=== PATIENT | female | born 2000 | race Two or more races ===

== ENCOUNTER 2024-11-27 03:19 | Emergency (ER) | payer OTHER, SELFPAY ==
[2024-11-27 03:20] VITALS: BMI 36.1
[2024-11-27 04:01] VITALS: BP 135/86; PULSE 68; RESP 18; TEMP 37.1; O2SAT 98
--- NOTE | 2024-11-27 04:26 | XR_ITS ---
Examination: Abdomen sonogram, Limited Date and time of exam: November 27, 2024, 0436 hours INDICATIONS: Onset epigastric pain today Technique: Real-time garrison scale transabdominal sonographic images of the upper abdomen obtained. Findings: Gallbladder sludge, negative for cholelithiasis, normal gallbladder wall. Common bile duct 0.3 cm Pancreatic head 2.7 cm Liver 14.2 cm fatty infiltration smooth contour no focal liver lesions Normal hepatopetal portal venous flow Patent IVC IMPRESSION: Gallbladder sludge, negative for cholelithiasis, negative for cholecystitis Normal common bile duct
--- NOTE | 2024-11-27 04:29 | PD.EDRME ---
Rapid Medical Screening Exam RME Arrival date/time: 11/27/24 03:19 This is a case of 24-year-old female who came into the emergency room due to abdominal pain nausea vomiting for 2 days worsening of the symptoms this patient decided to start consult here in the emergency room Chief Complaint: Abdominal Pain Time Seen by Provider: 11/27/24 04:23 Vital signs: Vital Signs Temperature 98.8 F 11/27/24 04:01 Pulse Rate 68 11/27/24 04:01 Respiratory Rate 18 11/27/24 04:01 Blood Pressure 135/86 H 11/27/24 04:01 Pulse Oximetry (%) 98 11/27/24 04:01 Oxygen Delivery Method Room Air 11/27/24 04:01
[2024-11-27 05:14] LABS: Basophils # (Auto) 0.1 Thou/mm3 (0.0-0.2); Basophils % (Auto) 1 % (0-2.5); Eosinophils # (Auto) 1.0 Thou/mm3 (0.0-0.5); Eosinophils % (Auto) 6 % (0-10); Hematocrit 40.6 % (36.0-46.0); Hemoglobin 13.9 g/dL (12.0-16.0); Immature Granulocytes Auto 0.05 Thou/mm3 (0.00-0.00); Lymphocytes # (Auto) 2.1 Thou/mm3 (1.0-4.8); Lymphocytes % (Auto) 12 % (10-50); Mean Corpuscular HGB Conc 34.2 g/dl (31.0-37.0); Mean Corpuscular Hemoglobin 30.5 pg (25.0-35.0); Mean Corpuscular Volume 89 fL (80-100); Monocytes # (Auto) 0.9 Thou/mm3 (0.0-0.8); Monocytes % (Auto) 5 % (0-12); Neutrophils # (Auto) 13.6 Thou/mm3 (1.8-7.7); Neutrophils % (Auto) 77 % (37-80); Nucleated Red Blood Cell # 0.00 Thou/mm3 (0.00-0.00); Nucleated Red Blood Cell % 0 /100 WBC (0); Platelet Count 245 Thou/mm3 (140-440); RDW Standard Deviation 41.8 fL (36.4-46.3); Red Blood Count 4.55 Miln/mm3 (4.00-5.20); White Blood Count 17.7 Thou/mm3 (3.6-11.0)
[2024-11-27 05:32] LABS: Alanine Aminotransferase 13 U/L (10-49); Albumin, Serum 4.7 gm/dL (3.5-5.0); Albumin/Globulin Ratio 1.9 (1.2-2.2); Alkaline Phosphatase 76 U/L (46-116); Anion Gap 10 (7-16); Aspartate Amino Transferase 17 U/L (0-34); BUN/Creatinine Ratio 13 Ratio (12-20); Bilirubin,Total 0.4 mg/dL (0.3-1.2); Blood Urea Nitrogen 10 mg/dL (9-23); Calcium 9.2 mg/dL (8.3-10.6); Calcium (Corrected) 9.2 mg/dL (8.5-10.1); Carbon Dioxide 25.0 mMol/L (20.0-31.0); Chloride 107 mMol/L (98-107); Creatinine (Component) 0.8 mg/dL (0.6-1.3); Estimated Creatinine Clearance 105.1 mL/min (>60); Globulin 2.5 gm/dL (2.3-3.5); Glucose 113 mg/dL (74-106); Lipase 30 U/L (12-53); Osmolality,Calculated 283 (275-295); Potassium 4.0 mMol/L (3.4-5.1); Sodium 142 mMol/L (136-145); Total Protein 7.2 gm/dL (5.7-8.2); eGFR > 60 See Note
--- NOTE | 2024-11-27 06:16 | EDNOTE_ITS ---
<Statement entered by America Hodges MD - 11/27/24 18:08> As co-signing physician, I was present and available for consult and also examined patient. I concur with the plan and care as documented by the resident physician ED General RME/HPI General Chief complaint: Abdominal Pain Stated complaint: UPPER ABDOMINAL PAIN Time Seen by Provider: 11/27/24 04:23 Arrival date/time: 11/27/24 03:19 RME / HPI RME / HPI narrative: 11/27/24 03:19 Ju is a 24 y/o female with PMHx obesity who comes in for evaluation of worsening, sharp, epigastric abdominal pain, onset yesterday at 11 AM after eating breakfast (payne and eggs), radiates to the back, has never had this before, not relieved with [id number]-dkaxmyp pain medicines. She is unsure if her pain is worse with food or not, however she says it is worse with certain positions. patient reports she has never had the symptoms before and she was eating breakfast and she began to feel the symptoms of abdominal pain rated 0 out of 10 initially. She says no one around her including those who ate breakfast with her are having the symptoms. She denies any history of gallstones. She says she last drank last weekend and it was only 1 drink. She says she smokes THC. She takes ibuprofen about 1-2 times a week. Denies history of acid reflux. She currently takes control and her last period was about 2 weeks ago. She denies any chest pain, shortness of breath, nausea, vomiting, diarrhea, vaginal bleeding. She says her bowel movements are usually normal and she goes about 2 times a day, last BM 30 minutes ago. She does say that her mom's mother and grandmother had a history of gallstones. 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 She Lives in [facility], however is visiting family for her uncle's birthday. Related Data Previous Rx's ?Medication ?Instructions ?Recorded aluminum-mag hydroxide-simethicone 10 ml PO QID PRN in digestion 2 11/27/24 200 mg-200 mg-20 mg/5 mL oral susp weeks #3,000 mL (Maalox Advanced) Allergies Allergy/AdvReac Type Severity Reaction Status Date / Time No Known Allergies Allergy Verified 09/29/18 21:58 Review of Systems Review of Systems Narrative Review of Systems: 12 point ROS reviewed and is otherwise negative unless stated directly in the HPI ED Exam Narrative Physical exam: General: AAOx3, NAD, obese HEENT: Moist mucous membranes, conjunctiva clear, EOMI, PERRLA, Cardiovascular: S1, S2, radial pulses +2 bilat, RRR Pulmonary: CTAB bilat no cough, no wheezing GI: Slight tenderness in RUQ, more tenderness in epigastric region, no guarding, rigidity, rebound tenderness or distension, bowel sounds present Extremities: No presence of trace or pitting edema in lower extremities bilaterally, dorsalis pedis pulses +2 bilaterally Neuro: AAOx3, no focal motor or sensory deficits in the UE or LE bilat Psych: Good judgement, thought and behavior Course Quality Measures none Orders Category Date Time Status CT Screening NOW Care 11/27/24 07:35 Active Insert IV NOW Care 11/27/24 07:[address] abdomen pelvis w con Stat Exams 11/27/24 07:35 Completed US gall bladder Stat Exams 11/27/24 04:26 Completed CBC Stat Lab 11/27/24 05:00 Completed Comprehensive Metabolic Panel Stat Lab 11/27/24 05:00 Completed Drug Screen,Urine Stat Lab 11/27/24 08:18 Completed HCG Qualitative,Urine Stat Lab 11/27/24 08:18 Completed Lipase Stat Lab 11/27/24 05:00 Completed Urinalysis Stat Lab 11/27/24 08:18 Completed Acetaminophen Tab [Tylenol Tab] Med 11/27/24 06:48 Discontinued 650 mg PO X1 ONE Famotidine Inj [Pepcid Inj] Med 11/27/24 07:26 Discontinued 20 mg IVP X1 ONE Ketorolac Inj [Toradol Inj] Med 11/27/24 07:26 Discontinued 30 mg IVP X1 ONE Pantoprazole Inj [Protonix Inj] Med 11/27/24 07:26 Discontinued 40 mg IVP X1 ONE mg Hyd/Al Hyd/Joel Susp [Maalox Susp] Med 11/27/24 07:26 Discontinued 30 ml PO X1 ONE Vital Signs Vital signs: Vital Signs Temperature 98.8 F 11/27/24 04:01 Pulse Rate 68 11/27/24 04:01 Respiratory Rate 18 11/27/24 04:01 Blood Pressure 135/86 H 11/27/24 04:01 Pulse Oximetry (%) 98 11/27/24 04:01 Oxygen Delivery Method Room Air 11/27/24 04:01 Discharge Plan Plan Patient Disposition: HOME (Self Care) Prescriptions/Referrals Prescriptions/Med Rec: New alum-mag hydroxide-simeth [Maalox Advanced] 200-200-20 mg/5 mL suspension 10 ml PO QID PRN (Reason: indigestion) 14 Days Qty: 3000 0RF Rx Instructions: Take 10 mL by mouth up to four times a day as needed for indigestion Referrals: No Primary/Family,Physician [Primary Care Provider] - In 1 week Problem List Clinical Impression: Biliary colic, Gastritis Patient/Caregiver Discharge Instructions Additional Instructions: Discharge instructions Follow-up with your PCP within 1 week We have prescribed you Maalox, take as prescribed Take [id number] Pepcid as needed for pain There was possible cysts on your ovaries seen on imaging, follow-up with your PCP regards to getting an ovarian ultrasound Speak with your PCP in regards to your symptoms including possible gallstone. Try to notice when your symptoms occur with and without food and with which type of foods. Recommend limiting fatty and spicy foods. Return to ED if your symptoms worsen or return Print Language: Chinese Stand Alone Forms: [employer] Award Info., Patient Portal Info Letter MDM Narrative MDM hospital course (for use when minimal MDM required): 0734: Reviewed labs which shows leukocytosis at 17.7, hemoglobin 14, liver enzymes within normal limits, T. bili unremarkable, ALP unremarkable, lipase 30. Pending gallbladder ultrasound read. At this time patient's abdominal exam is positive for slight tenderness in right upper quadrant and RLQ. Will need to follow-up with gallbladder ultrasound for further evaluation. Will order CT abd/pelvis w contrast for appendicitis workup. GI cocktail with Pepcid, Maalox and Protonix. Toradol 30 mg IV x 1 1057: Pain has resolved with GI cocktail. CT abd/pelvis reveals normal appendix, however possible follicular cysts. This patient can follow-up with ultrasound of ovaries outpatient. At this time patient is medically clear for discharge as there is no appendicitis, however gallbladder ultrasound did show gallbladder sludge which can indicate possible biliary colic that has passed. Patient was counseled on to notice if patient's pain returns with certain foods such as fatty and fried foods. She will need to speak with her PCP in regards for further workup. Considering that her pain did not improve with GI cocktail, she may benefit from Pepcid outpatient and we will prescribe her Maalox as well. She could also have a component of gastritis which she can work out outpatient. Medication Administration(s) Medication Administration History Discontinued Medications Acetaminophen (Acetaminophen 325 Mg Tablet) 650 mg PO X1 ONE Stop: 11/27/24 06:49 Last Admin: 11/27/24 07:29 Dose: 650 mg Documented By: ROSSY Al Hydrox/Mg Hydrox/Simethicone (Mg Hyd/Al Hyd/Joel (Maalox Reg) Susp 30 Ml Udc) 30 ml PO X1 ONE Stop: 11/27/24 07:27 Last Admin: 11/27/24 07:36 Dose: 30 ml Documented By: ROSSY Famotidine (Famotidine Inj 10 Mg/Ml Vial 2 Ml) 20 mg IVP X1 ONE Stop: 11/27/24 07:27 Last Admin: 11/27/24 07:43 Dose: 20 mg Documented By: ROSSY Ketorolac Tromethamine (Ketorolac Inj 30 Mg/Ml Vial) 30 mg IVP X1 ONE Stop: 11/27/24 07:27 Last Admin: 11/27/24 07:44 Dose: 30 mg Documented By: ROSSY Pantoprazole Sodium (Pantoprazole Inj 40 Mg Vial) 40 mg IVP X1 ONE Stop: 11/27/24 07:27 Last Admin: 11/27/24 07:43 Dose: 40 mg Documented By: ROSSY Diagnosis Diagnoses ruled out and/or further discussions: Biliary colic, appendicitis, gastritis, PUD, pancreatitis
[2024-11-27 06:26] VITALS: BP 126/77; PULSE 61; RESP 19; TEMP 36.7; O2SAT 98
[2024-11-27] MEDS: ACETAMINOPHEN 325 MG TABLET 650 MG PO (07:29)
--- NOTE | 2024-11-27 07:35 | XR_ITS ---
Examination: CT abdomen with intravenous contrast CT pelvis with intravenous contrast 2-D coronal reconstructions 2-D sagittal reconstructions Date and time of exam: November 27, 2024, 0941 hours INDICATIONS: Right lower abdominal pain and tenderness beginning 2 days ago. CTDI: vol (mGy) 12.6 DLP: (mGycm) 681 Technique: Multiple axial sections of the abdomen and pelvis have been obtained. 64 slice high-resolution scanner used. 3 mm axial sections have been obtained, post intravenous injection 60 cc [id number] 2-D sagittal, coronal reconstructions obtained. Low dose protocols were performed. One or more of the following dose reduction techniques were used; automated exposure control, adjustment of the mA and/or KV according to patient size, use of iterative reconstruction technique. Findings: No visualized liver or splenic lesion. No gallstones. No pancreatic edema. Normal adrenal glands. No renal or ureteral calculi, no hydronephrosis. Aorta normal size. 5 mm fat-containing umbilical hernia. Normal appendix, coronal images 56 through 51, no pericecal inflammatory change Uterus is not enlarged Small bilateral ovarian follicular cysts Bladder intact IMPRESSION: Normal appendix Small bilateral ovarian follicular cysts, consider pelvic sonography follow-up
[2024-11-27] MEDS: MG HYD/AL HYD/SIME (Maalox Reg) SUSP 30 ML UDC PO (07:36)
[2024-11-27] MEDS: FAMOTIDINE INJ 10 MG/ML VIAL 2 ML 20 MG IVP (07:43)
[2024-11-27] MEDS: KETOROLAC INJ 30 MG/ML VIAL IVP (07:44)
[2024-11-27 08:05] VITALS: BP 118/77; PULSE 67; RESP 16; TEMP 36.8; O2SAT 97
[2024-11-27 08:24] LABS: Collection Type, Urine Clean Catch
[2024-11-27 09:09] LABS: Bilirubin,Urine Negative (Negative); Blood,Urine Negative (Negative); Clarity,Urine Clear (Clear/Hazy); Color,Urine Lt-Yellow (Lt Yel-Yel); Glucose, Urine Negative (Negative); Ketones,Urine Trace (Negative); Leukocyte Esterase,Urine Negative (Negative); Nitrite,Urine Negative (Negative); PH,Urine 7.0 (5.0-7.0); Protein,Urine Negative (Neg - Trace); RBC,Urine < 1 /hpf (0-3); Specific Gravity,Urine 1.017 (1.001-1.035); Squamous Epithelial Cell,Urine 1 /hpf (0-5); Urobilinogen,Urine Negative mg/dL (0.0-1.0); WBC,Urine < 1 /hpf (0-5)
[2024-11-27 09:18] LABS: HCG Qualitative,Urine Negative
[2024-11-27 10:08] LABS: Amphetamine/Methamp Scrn,U Negative (Negative); Barbiturate Screen,Urine Negative (Negative); Benzodiazepines Screen,Urine Negative (Negative); Benzoylecgonine Screen, Ur Negative (Negative); Fentanyl Screen,Urine Negative (Negative); Opiate Screen,Urine Negative (Negative); THC Screen,Urine Positive (Negative)
[2024-11-27 10:21] VITALS: BP 95/52; PULSE 58; RESP 16; TEMP 36.7; O2SAT 98
[2024-11-27 11:18] VITALS: BP 103/61; PULSE 62; RESP 16; TEMP 36.7; O2SAT 99
== END 2024-11-27 11:19 | disposition home or self-care (01) ==
PROVIDERS: Nurse Practitioner Family
DX: K80.50 Calculus of bile duct without cholangitis or cholecystitis without obstruction (principal); E66.9 Obesity, unspecified; K29.70 Gastritis, unspecified, without bleeding
CPT/HCPCS: 36415; 74177; 76705; 80053; 80307; 81001; 81025; 83690; 85025; 96374; 96375; 99284; A4649; J1885; J2470; J3490; Q9967; A9270